=== PATIENT | male | born 1965 | race Caucasian/White ===

== ENCOUNTER 2020-09-18 14:40 | Inpatient (IN) | payer MEDICAID ==
[~2020-09-18] VITALS: Ht 172.7 cm; Wt 108.4 kg
[2020-09-18] MEDS ORDERED: MORPHINE SULFATE INJ 2 MG/ML DISP.SYRIN IV ONE (15:30)
[2020-09-18] MEDS ORDERED: IV NS 0.9% 1,000 ML BAG IV ONE (15:30)
[2020-09-18] MEDS ORDERED: MORPHINE SULFATE INJ 4 MG/ML DISP.SYRIN ONE (15:42)
[2020-09-18 15:45] LABS: BASOPHILS % (AUTO) 0.3 % (0.0-2.0); EOSINOPHILS % (AUTO) 0.9 % (0.0-6.0); HEMATOCRIT 33 % (39-51); HEMOGLOBIN 10.2 g/dL (13.5-17.5); LYMPHOCYTES # (AUTO) 0.6 K/uL (0.8-4.8); LYMPHOCYTES % (AUTO) 9.5 % (20.0-44.0); MEAN CORPUSCULAR HGB CONC 31 g/dl (31.0-36.0); MEAN CORPUSCULAR VOLUME 66 fL (80-96); MONOCYTES # (AUTO) 0.4 K/uL (0.1-1.30); MONOCYTES % (AUTO) 6.7 % (2.0-12.0); NEUTROPHILS # (AUTO) 5.3 K/uL (1.8-8.9); NEUTROPHILS % (AUTO) 82.6 % (43.0-81.0); PLATELET COUNT (AUTO) 290 K/uL (150-450); RED BLOOD CELL COUNT(AUTO) 5.05 MIL/uL (4.5-6.0); WHITE BLOOD COUNT (AUTO) 6.5 K/uL (4.3-11.0)
--- NOTE | 2020-09-18 15:51 | NUR ---
THE PATIENT REFUSES TO GIVE URINE AT THIS TIME DESPITE EXPLAINING RISKS AND BENEFITS.
[2020-09-18 15:59] LABS: ALBUMIN 3.3 g/dL (3.4-5.0); BILIRUBIN,DIRECT 0.1 mg/dL (0.0-0.2); BILIRUBIN,TOTAL 0.5 mg/dL (0.2-1.0); CREATININE 1.1 mg/dL (0.6-1.3); POTASSIUM 4.2 mmol/L (3.5-5.1); TOTAL PROTEIN, SERUM 7.4 g/dL (6.4-8.2)
[2020-09-18 16:07] LABS: CALCIUM, SERUM 8.8 mg/dL (8.5-10.1)
--- NOTE | 2020-09-18 16:52 | NUR ---
CALLED SURGERY ISREAL SPARKS.
--- NOTE | 2020-09-18 17:04 | NUR ---
MOVE SHEET SUBMITTED AND CALLED FOR MS BED.
--- NOTE | 2020-09-18 17:16 | NUR ---
COVID SWABS DONE AND SENT TO THE LAB
--- NOTE | 2020-09-18 17:36 | NUR ---
CALLED DR. BACH AGAIN [phone] LEFT MSG.
--- NOTE | 2020-09-18 18:13 | NUR ---
DR BACH SPEAKING WITH DR GUTIERREZ
--- NOTE | 2020-09-18 18:28 | NUR ---
ROOM 103
--- NOTE | 2020-09-18 18:39 | NUR ---
REPORT GIVEN TO NURSE EDUARDO
--- NOTE | 2020-09-18 19:01 | NUR ---
EPIC CALLED INSPECTOR BALANCE TRUING PAGED
--- NOTE | 2020-09-18 19:40 | NUR ---
RN NOTES RECEIVED PT FROM ER VIA GURNEY ACCOMPANIED BY 1 ER STAFF AND TRANSFERRED TO BED VIA 2 PERSON ASSIST. PT IS A/OX4 ON ROOM AIR WITH RESPIRATIONS EVEN AND UNLABORED. COMPREHENSIVE PHYSICAL ASSESSMENT AND PATIENT CARE DONE. CALL LIGHT WITHIN REACH, SAFETY MEASURES AND ISOLATION PRECAUTION IN PLACE, WILL CONTINUE MONITOR AND ASSESS THROUGHOUT THE SHIFT. WILL CARRY OUT MD ORDERS ACCORDINGLY. MARKET ANALYST MADE AWARE.
[2020-09-18] MEDS: MORPHINE SULFATE INJ 2 MG/ML DISP.SYRIN IV PRN (19:47)
[2020-09-18 20:00] VITALS: BP 118/73
[2020-09-18] MEDS ORDERED: ACETAMINOPHEN 650 MG/SUPP.RECT RC PRN (20:00)
[2020-09-18] MEDS: IV D5/0.45 NACL 1,000 ML IV PRN (20:35)
[2020-09-18] MEDS: ONDANSETRON HCL/PF 4 MG/2 ML VIAL IVP PRN (21:30)
--- NOTE | 2020-09-18 23:00 | NUR ---
RN NOTES NO CHANGE IN PATIENT CONDITION AT THIS TIME PATIENT VITALS STABLE, NO SIGNS OF ACUTE RESPIRATORY DISTRESS. INSPECTOR PACKAGER MADE AWARE. WILL CONTINUE TO MONITOR AND REASSESS FOR ANY CHANGES THROUGHOUT THE SHIFT.
--- NOTE | 2020-09-19 | NUR ---
RN NOTES PT'S FAMILY/GIRL FRIEND DROPPED BY SOME PERSONAL STUFF OF PT, ALSO SENT PT'S BELONGINGS AT HOME RECEIVED BY MS GIULIA STORMMIRLANDENONA (GIRLFRIEND) BELONGINGS SENT HOME FOLLOWS 2 SHIRTS, 1 PAIR OF SHOES, 1 SHORTS, SOCKS, 1 WATCH , 1 RING, WALLET WITH BOGGS $20(X14) $1(X5) AND $10(1X) AND KEYS. ALL BELONGINGS ACCOUNTED AND SENT HOME; SIGNED BY THE GF. NET REPAIRER MADE AWARE.
[2020-09-19 04:00] VITALS: BP 137/79
[2020-09-19 06:52] LABS: BASOPHILS % (AUTO) 0.5 % (0.0-2.0); EOSINOPHILS % (AUTO) 3.4 % (0.0-6.0); HEMATOCRIT 31 % (39-51); HEMOGLOBIN 9.7 g/dL (13.5-17.5); LYMPHOCYTES # (AUTO) 1.2 K/uL (0.8-4.8); LYMPHOCYTES % (AUTO) 25.6 % (20.0-44.0); MEAN CORPUSCULAR HGB CONC 31 g/dl (31.0-36.0); MEAN CORPUSCULAR VOLUME 65 fL (80-96); MONOCYTES # (AUTO) 0.4 K/uL (0.1-1.30); MONOCYTES % (AUTO) 9.5 % (2.0-12.0); NEUTROPHILS # (AUTO) 2.9 K/uL (1.8-8.9); PLATELET COUNT (AUTO) 258 K/uL (150-450); RED BLOOD CELL COUNT(AUTO) 4.81 MIL/uL (4.5-6.0); WHITE BLOOD COUNT (AUTO) 4.7 K/uL (4.3-11.0)
--- NOTE | 2020-09-19 06:52 | NUR ---
RN CLOSING NOTE: PATIENT REMAINS IN ROOM IN NO SIGNS OF RESPIRATORY DISTRESS, PATIENT STILL ON ROOM AIR ;TOLERATING WELL SATURATING @ >95% SP02. SAFETY MEASURES IMPLEMENTED, BED IN LOWEST POSITION, LOCKED, SIDE RAILS UP, CALL LIGHT WITHIN REACH. ALL NEEDS AND ORDERS ADDRESSED DURING THE SHIFT. IV ACCESS MAINTAINED INTACT, SECURED AND FLUSHING WELL. ALL DUE MEDS GIVEN ORDERED & SCHEDULED ; PATIENT TOLERATED WELL. PATIENT KEPT CLEAN AND COMFORTABLE WITHIN THE SHIFT. PATIENT ENDORSED TO INCOMING SHIFT RN WITH STABLE VITAL SIGN AND FOR CONTINUITY OF CARE.
--- NOTE | 2020-09-19 07:11 | NUR ---
RN OPENING NOTE RECEIVED PATIENT RESTING IN BED. PATIENT IS A/O X4. PATIENT IS BREATHING EVENLY NONLABORED ON ROOM AIR. NO SIGNS OF DISTRESS NOTED. PATIENT HAS IV ACCESS R HAND # 20 GAUGE RUNNING D5 1/2 NS @ 75 ML/HR. PATIENT IS NPO POST MIDNIGHT FOR PROCEDURE. SAFETY MEASURES ARE IN PLACE. BED LOW LOCKED CALL LIGHT WITHIN REACH. WILL CONTINUE TO MONITOR
[2020-09-19 07:12] LABS: CALCIUM, SERUM 8.3 mg/dL (8.5-10.1); CREATININE 0.9 mg/dL (0.6-1.3); POTASSIUM 3.8 mmol/L (3.5-5.1)
[2020-09-19 08:00] VITALS: BP 136/86
[2020-09-19] MEDS: PANTOPRAZOLE 40 MG VIAL IV SCH (08:06)
[2020-09-19] MEDS: MORPHINE SULFATE INJ 2 MG/ML DISP.SYRIN IV PRN ×3 (08:06→22:11)
[2020-09-19] MEDS: NICOTINE PATCH (7MG) 7 MG PATCH.TD24 TD SCH (08:06)
--- NOTE | 2020-09-19 08:15 | NUR ---
RN NOTE PATIENT COMPLAINED OF SEVERE PAIN /, ASKED FOR PRN PAIN MEDICATIONS. VITALS STABLE. MEDICATION GIVEN ORDERED. MD AT BEDSIDE, STATED OKAY FOR MIDLINE DUE TO MULTIPLE IV STICKS AND UNABLE TO OBTAIN IV ACCESS. WILL CONTINUE TO MONITOR
[2020-09-19] MEDS ORDERED: OMEP20CA15 PO (08:27)
[2020-09-19] MEDS: IV D5/0.45 NACL 1,000 ML IV PRN (09:41)
--- NOTE | 2020-09-19 10:00 | NUR ---
RN NOTE PATIENT HAS LEFT UPPER ARM MIDLINE 18 GAUGE PLACED, PATENT INTACT. PATIENT TOLERATED PROCEDURE WELL
[2020-09-19] MEDS: SOD FERRIC GLUC 125 MG in IV NS 0.9% 100 ML IV SCH (13:16)
[2020-09-19 16:21] VITALS: BP 128/70
--- NOTE | 2020-09-19 17:00 | NUR ---
RN NOTE PATIENT COMPLAINED OF SEVERE PAIN 9/10, ASKED FOR PRN PAIN MEDICATIONS. VITALS STABLE. MEDICATION GIVEN ORDERED
--- NOTE | 2020-09-19 18:19 | NUR ---
RN CLOSING NOTE PATIENT RESTING IN BED. PATIENT IS A/O X4. PATIENT IS BREATHING EVENLY NONLABORED ON ROOM AIR. NO SIGNS OF DISTRESS NOTED. PATIENT DOES NOT COMPLAIN OF PAIN AT THIS TIME. PATIENT HAS IV ACCESS R HAND # 20 GAUGE RUNNING D5 1/2 NS @ 75 ML/HR & LEFT UPPER ARM MIDLINE, PATENT INTACT. ALL MEDICATION GIVEN ORDERED. SAFETY MEASURES ARE IN PLACE. BED LOW LOCKED CALL LIGHT WITHIN REACH. WILL ENDORSE TO ONCOMING SHIFT
--- NOTE | 2020-09-19 20:00 | NUR ---
RN OPENING NOTE PATIENT RESTING IN BED. PATIENT IS A/O X4. PATIENT IS BREATHING EVEN AND UNLABORED, TOLERATING ROOM AIR. NO COMPLAINS OF PAIN AT THIS TIME. PATIENT HAS IV ACCESS R HAND G 20 RUNNING D5 1/2 NS @ 75 ML/HR AND LEFT UPPER ARM MIDLINE, PATENT AND INTACT. NPO STATUS ENDORSED. PATIENT AMBULATORY TO BATHROOM. SAFETY MEASURES ARE IN PLACE. BED LOW LOCKED CALL LIGHT WITHIN REACH. WILL CONTINUE TO MONITOR.
[2020-09-20] VITALS: BP 158/83
[2020-09-20] MEDS: IV D5/0.45 NACL 1,000 ML IV PRN ×2 (01:05→15:19)
[2020-09-20] MEDS: MORPHINE SULFATE INJ 2 MG/ML DISP.SYRIN IV PRN ×4 (04:14→22:38)
[2020-09-20] MEDS: ONDANSETRON HCL/PF 4 MG/2 ML VIAL IVP PRN (04:24)
--- NOTE | 2020-09-20 07:25 | NUR ---
RN CLOSING NOTE PATIENT IN BED, SLEEPING. EASILY AROUSED. PATIENT NOT IN ANY APPARENT DISTRESS. PATIENT'S BREATHING EVEN AND UNLABORED, TOLERATING ROOM AIR. PATIENT ABLE TO MAKE NEEDS KNOWN, A/O X 4. NO COMPLAINS OF N/V AT THIS TIME. IV FLUIDS INFUSING WELL ON R HAND 20 G. ROSHNI MIDLINE REMAINS PATENT AND INTACT. SAFETY MEASURES MAINTAINED. ALL NEEDS MET AND ATTENDED, PAIN MANAGED WITH MORPHINE 4 MG LAST GIVEN 0414, AND NAUSEA MANAGED WITH ZOFRAN 0424. ALL ORDERS CARRIED OUT. ENDORSED TO DAY SHIFT NURSE FOR LONI.
--- NOTE | 2020-09-20 07:30 | NUR ---
RN NOTES PATIENT SLEEPING AT THIS TIME BUT ABLE TO BE AWAKENED. A/O X4, ABLE TO MAKE NEEDS KNOWN. BREATHING EVEN AND UNLABORED, ON AMBIENT AIR, NO RESPIRATORY DISTRESS. MIDLINE INTACT AND PATENT. IVF INFUSING WELL. PER PREVIOUS SHIFT RN, PATIENT REFUSED BLOOD DRAW. SAFETY MEASURES IN PLACE. WILL CONTINUE TO MONITOR.
[2020-09-20 08:00] VITALS: BP 109/68
[2020-09-20] MEDS: PANTOPRAZOLE 40 MG VIAL IV SCH (08:14)
[2020-09-20] MEDS: NICOTINE PATCH (7MG) 7 MG PATCH.TD24 TD SCH (08:14)
--- NOTE | 2020-09-20 08:20 | NUR ---
RN NOTES PATIENT WAS SEEN BY DR. MC TODAY.
[2020-09-20 09:52] VITALS: BP 109/68
--- NOTE | 2020-09-20 13:00 | NUR ---
RN NOTES INFORMED DR. BACH ABOUT SURGICAL CONSULT, AWAITING FOR RESPONSE FROM .
--- NOTE | 2020-09-20 15:12 | NUR ---
RN NOTES ASKED PHARMACY FOR FERLECIT DUE AT 1400; SPOKE W/ OMAR AND WILL HAVE IV MEDICATION READY.
--- NOTE | 2020-09-20 15:17 | NUR ---
RN NOTES SPOKE W/ VIVIENNE ([phone]), PATIENT'S GIRLFRIEND, AND INFORMED ABOUT PLAN FOR PATIENT; SPOKE W/ PATIENT USING UNIT PHONE.
[2020-09-20] MEDS: SOD FERRIC GLUC 125 MG in IV NS 0.9% 100 ML IV SCH (15:19)
[2020-09-20 16:00] VITALS: BP 119/82
--- NOTE | 2020-09-20 19:45 | NUR ---
RN OPENING NOTE PATIENT RESTING IN BED. PATIENT IS A/O X4. PATIENT IS BREATHING EVEN AND UNLABORED, TOLERATING ROOM AIR. NO COMPLAINS OF PAIN AT THIS TIME. PATIENT HAS IV ACCESS R HAND 20 G WHICH IS NOT PATENT AND TENDER, WILL BE REMOVED. PT. ALSO HAS A (L) UA MIDLINE RUNNING D5 1/2 NS @ 75 ML/HR. NPO STATUS PENDING SURGICAL CONSULT. PATIENT AMBULATORY TO BATHROOM WITH STEADY GAIT. SAFETY MEASURES ARE IN PLACE. BED LOW, LOCKED, CALL LIGHT WITHIN REACH, SIDE RAILS UP X2. NO ACUTE DISTRESS NOTED AT THIS TIME. .
--- NOTE | 2020-09-20 20:15 | NUR ---
RN NOTE PT (R) HAND IV NON-PATENT AND TENDER. REMOVED AND IV CATHETER TIP INTACT. THERE IS NO EXTRAVASATION, INFILTRATION OR ERYTHEMA EVIDENT. COVERED WITH CLEAN GAUZE AND TAPE.
--- NOTE | 2020-09-20 23:10 | NUR ---
RN NOTE PT COMPLAINED OF PAUN 8/10 LOCALIZED IN ANTERIOR ABDOMEN. STATES IT IS ACUTE SHARP PAIN RADIATING THROUGHOUT ENTIRE ABDOMEN. MORPHINE 4MG PRN GIVEN PER eMAR at 2238. PAIN RE-ASSESSMENT COMPLETED AT 2308. PT VERBALIZES RELIEF OF PAIN WITH A PAIN LEVEL OF 1/10. PT. IS EASILY AROUSABLE AND RESTING COMFORTABLY. NO ACUTE DISTRESS NOTED.
[2020-09-21] VITALS: BP 139/79
[2020-09-21 04:00] VITALS: BP 140/60
[2020-09-21] MEDS: IV D5/0.45 NACL 1,000 ML IV PRN ×2 (05:00→21:19)
--- NOTE | 2020-09-21 06:42 | NUR ---
RN CLOSING NOTE PATIENT IN BED, SLEEPING. A/O X 4. EASILY AROUSED. PATIENT BREATHING EVEN AND UNLABORED SATURATIONS ABOVE 98% ON ROOM AIR. PATIENT ABLE TO MAKE NEEDS KNOWN. NO COMPLAINS OF N/V AT THIS TIME. IV FLUIDS INFUSING WELL ON (L) UA MIDLINE WHICH REMAINS PATENT CLEAN DRY AND INTACT. SAFETY MEASURES MAINTAINED. ALL NEEDS MET AND ATTENDED, PAIN MANAGED WITH MORPHINE IVP PRN 4 MG LAST GIVEN AT 2238. NO ACUTE DISTRESS NOTED AT THIS TIME. WILL ENDORSE CONTINUITY OF CARE TO MORNING SHIFT RN. .
[2020-09-21 07:09] LABS: BASOPHILS # (AUTO) 0.1 K/uL (0.0-0.2); BASOPHILS % (AUTO) 1.1 % (0.0-2.0); EOSINOPHILS % (AUTO) 3.1 % (0.0-6.0); HEMATOCRIT 33 % (39-51); HEMOGLOBIN 10.2 g/dL (13.5-17.5); LYMPHOCYTES # (AUTO) 1.2 K/uL (0.8-4.8); MEAN CORPUSCULAR HGB CONC 31 g/dl (31.0-36.0); MEAN CORPUSCULAR VOLUME 66 fL (80-96); MONOCYTES # (AUTO) 0.4 K/uL (0.1-1.30); MONOCYTES % (AUTO) 6.9 % (2.0-12.0); NEUTROPHILS # (AUTO) 3.4 K/uL (1.8-8.9); NEUTROPHILS % (AUTO) 65.9 % (43.0-81.0); PLATELET COUNT (AUTO) 253 K/uL (150-450); RED BLOOD CELL COUNT(AUTO) 5.03 MIL/uL (4.5-6.0); WHITE BLOOD COUNT (AUTO) 5.2 K/uL (4.3-11.0)
[2020-09-21] MEDS: MORPHINE SULFATE INJ 2 MG/ML DISP.SYRIN IV PRN ×3 (07:25→21:58)
[2020-09-21] MEDS: ONDANSETRON HCL/PF 4 MG/2 ML VIAL IVP PRN (07:39)
[2020-09-21 07:40] LABS: CALCIUM, SERUM 8.4 mg/dL (8.5-10.1); CREATININE 1.2 mg/dL (0.6-1.3); POTASSIUM 3.9 mmol/L (3.5-5.1)
[2020-09-21 08:00] VITALS: BP 119/81
[2020-09-21] MEDS: NICOTINE PATCH (7MG) 7 MG PATCH.TD24 TD SCH (08:16)
[2020-09-21] MEDS: PANTOPRAZOLE 40 MG VIAL IV SCH (08:16)
--- NOTE | 2020-09-21 08:20 | NUR ---
RN Note: Pt received alert awake oriented X4. On RA, no breathing distress noted. C/O abdominal pain, morphine IV given as ordered. Safety measures observed. Encourage pt to use call light for assistance. Call light within reach. Continue to monitor. Waiting for Surgery consult.
[2020-09-21] MEDS: SOD FERRIC GLUC 125 MG in IV NS 0.9% 100 ML IV SCH (14:16)
[2020-09-21 16:00] VITALS: BP 138/73
--- NOTE | 2020-09-21 16:00 | NUR ---
RN Note; Pt seen by Dr. Linder at bedside. Received new orders to start clear liquids & NPO post MN. Verbal order to get consent for possible surgery tomorrow. Consent signed by pt & placed in the chart. Pt agree with plan. Continue to monitor.
--- NOTE | 2020-09-21 19:24 | NUR ---
RN Note: No any significant changes noted during shift. Report given to shift mechanic for continuity of care.
[2020-09-21 21:15] VITALS: BP 156/78
--- NOTE | 2020-09-21 21:15 | NUR ---
MS RN NOTES RECEIVED PATIENT FROM [facility] VIA WHEELCHAIR ACCOMPANIED BY URSULA RN GERALD. PATIENT IS ALERT AND ORIENTED X 4, ABLE TO AMBULATE WHEN TRANSFERRED TO BED. ON ROOM AIR, IN NO ACUTE DISTRESS NOTED. IV ACCESS ON LEFT UPPER ARM, PATENT AND FLUSHES WELL. PATIENT STARTED ON D5 1/2 NS X 75CC/HR. VS TAKEN ADN RECORDED FOLLOWS: TEMP 98.1, WI 55, RR 20, BP 156/78, O2 SAT 97%. ORIENTED PATIENT TO UNIT. INSTRUCTED ON THE USE OF CALL LIGHT WHEN ASSISTANCE IS NEEDED. INSTRUCTED ON NPO POST MIDNIGHT. PATIENT VERBALIZED UNDERSTANDING OF INSTRUCTIONS GIVEN. FOR SCHEDULED SURGERY CASIE (09/22/20), CONSENTS SIGNED PER REPORT, SAFETY PRECAUTIONS OBSERVED: BED ON LOWEST LOCKED POSITION, KEPT SIDE RAILS UP X 2. CALL LIGHT AND BEDSIDE TABLE WITHIN EASY REACH. WILL CONTINUE TO MONITOR PATIENT'S CONDITION.
--- NOTE | 2020-09-21 21:58 | NUR ---
PAIN MANAGEMENT PATIENT C/O LEFT LOWER ABDOMINAL PAIN WITH PAIN SCALE OF 8/10, DUE PRN MORPHINE GIVEN ORDERED. WILL CONTINUE TO MONITOR PATIENT'S PAIN STATUS.
--- NOTE | 2020-09-21 22:50 | NUR ---
RN notes Received patient in bed watching TV with no distress noted. Breathing even and unlabored. On room air tolerating well. Alert and oriented x4. Able to communicate needs verbally. Ambulatory and cooperative. No complaint of pain or discomfort. Kept clean and dry. [facility] via wheelchair safely and comfortably. Endorsed to Nataliya CUBA.
[2020-09-22 00:17] LABS: BILIRUBIN,URINE NEGATIVE (NEGATIVE); COLOR,URINE YELLOW (YELLOW); LEUKOCYTE ESTERASE ,URINE MODERATE (NEGATIVE); NITRITE, URINE NEGATIVE (NEGATIVE); PH,URINE 6.5 (5.0-8.0); PROTEIN,URINE NEGATIVE (NEGATIVE); UGLUCOSE NEGATIVE (NEGATIVE)
[2020-09-22 01:26] LABS: WBC,URINE 21-50 /HPF (0-3)
[2020-09-22 01:27] LABS: BACTERIA,URINE Few /HPF (None Seen); MUCUS,URINE Few /LPF (None Seen); SQUAMOUS EPITHELIAL CELL,UR Few /HPF (None Seen)
[2020-09-22] MEDS: MORPHINE SULFATE INJ 2 MG/ML DISP.SYRIN IV PRN ×4 (03:45→22:21)
--- NOTE | 2020-09-22 03:45 | NUR ---
PAIN MANAGEMENT PATIENT HAS C/O LEFT LOWER ABDOMINAL PAIN WITH PAIN SCALE OF 8/10, DUE PRN MORPHINE GIVEN ORDERED. WILL CONTINUE TO MONITOR PATIENT'S PAIN STATUS.
[2020-09-22 04:11] VITALS: BP 100/59
--- NOTE | 2020-09-22 05:19 | NUR ---
RN NOTES REFUSED BLOOD DRAW FOR AM LABS. RISK AND BENEFITS EXPLAINED 3X, BUT PATIENT STILL REFUSED.
--- NOTE | 2020-09-22 06:43 | NUR ---
MS RN CLOSING NOTES APTIENT IN BED, AWAKE, ALERT AND ORIENTED X 4, ON ROOM AIR TOLERATING WELL, IN NO ACUTE DISTRESS NOTED. IV ACCESS ON LEFT UPPER ARM, ONGOING D5 1/2 NS X 75CC/HR, INFUSING WELL, NO REDNESS, NO S/SX OF INFILTRATION NOTED. REINFORCED NPO. PRE OP CHECKLIST PARTIALLY DONE. SAFETY PRECAUTIONS OBSERVED AND MAINTAINED DURING THE SHIFT: BED ON LOWEST LOCKED POSITION, KEPT SIDE RAILS UP X 2. CALL LIGHT AND BEDSIDE TABLE WITHIN EASY REACH. NO COMPLAINTS OF PAIN AT THIS TIME. NEEDS ATTENDED AND MET. WILL ENDORSE TO MORNING SHIFT NURSE FOR LONI.
--- NOTE | 2020-09-22 07:10 | NUR ---
MS RN OPENING NOTE RECEIVED PATIENT RESTING IN BED. PATIENT IS A/O X4. PATIENT IS BREATHING EVEN AND UNLABORED, TOLERATING ROOM AIR. NO COMPLAINS OF PAIN AT THIS TIME. PATIENT HAS IV ACCESS R HAND G 20 RUNNING D5 1/2 NS @ 75 ML/HR AND LEFT UPPER ARM MIDLINE, PATENT AND INTACT. NPO STATUS MAINTAINED, PATIENT WILL HAVE SURGICAL PROCEDURE LATER TODAY. PATIENT IS AMBULATORY. SAFETY MEASURES ARE IN PLACE. BED LOW LOCKED CALL LIGHT WITHIN REACH. WILL CONTINUE TO MONITOR.
--- NOTE | 2020-09-22 08:00 | NUR ---
RN NOTE PATIENT C/O LEFT LOWER ABDOMINAL PAIN WITH PAIN SCALE OF 10/10, DUE PRN MORPHINE GIVEN ORDERED. WILL CONTINUE TO MONITOR PATIENT'S PAIN STATUS.
[2020-09-22] MEDS: PANTOPRAZOLE 40 MG VIAL IV SCH (08:25)
[2020-09-22] MEDS: NICOTINE PATCH (7MG) 7 MG PATCH.TD24 TD SCH (08:25)
[2020-09-22 08:54] VITALS: BP 147/65
--- NOTE | 2020-09-22 11:26 | NUR ---
RN NOTE PATIENT LEFT IN STABLE CONDITION FOR SURGERY, NO SIGNS OF DISTRESS NOTED
[2020-09-22] MEDS ORDERED: FENTANYL PF 100MCG/2ML AMPUL ONE (11:51)
[2020-09-22] MEDS ORDERED: ROCURONIUM BROMIDE 50 MG/5 ML ONE (11:52)
[2020-09-22] MEDS ORDERED: BUPIVACAINE MPF 0.5% W/EPI INJ 30 ML VIAL ONE (11:57)
[2020-09-22] MEDS ORDERED: LIDOCAINE HCL/MPF 1% 30 ML VIAL IJ ONE (11:57)
[2020-09-22] MEDS ORDERED: BACITRACIN ZINC OINT (15 GM) 15 GM TUBE TP ONE (13:42)
[2020-09-22] MEDS ORDERED: HYDROMORPHONE 1 MG/1 ML DISP.SYRIN ONE ×2 (14:01→14:18)
--- NOTE | 2020-09-22 14:57 | NUR ---
RN NOTE PATIENT RETURN BACK FROM SURGERY. VITALS BP 145/78, HR 89, RR 18, SPO 100 ON ROOM AIR. VITALS SET FOR Q15 MIN. PATIENT COMPLAINS OF SEVERE PAIN, PATIENT WAS GIVEN DILAUDID 30 MIN AGO IN RECOVERY. WILL REASSESS. GAVE NEW ORDER FOR CLEAR LIQUID. WILL CONTINUE TO MONITOR
--- NOTE | 2020-09-22 15:00 | NUR ---
RN NOTE ADMINISTERED FERRLECIT, DUE AT 1400, PATIENT WAS IN SURGICAL PROCEDURE. OKAY TO GIVE AFTER PROCEDURE. WILL CONTINUE TO MONITOR
[2020-09-22] MEDS: GABAPENTIN 300 MG CAPSULE PO SCH ×2 (15:47→22:15)
[2020-09-22] MEDS: ACETAMINOPHEN 325 MG TABLET PO SCH ×2 (15:47→22:15)
[2020-09-22] MEDS: IBUPROFEN 400 MG TABLET PO SCH ×2 (15:49→22:15)
[2020-09-22] MEDS: IV LR 1000 ML 1,000 ML IV PRN (15:49)
[2020-09-22] MEDS: SOD FERRIC GLUC 125 MG in IV NS 0.9% 100 ML IV SCH (15:49)
[2020-09-22 16:03] VITALS: BP 145/83
--- NOTE | 2020-09-22 17:50 | NUR ---
RN NOTE PATIENT C/O LEFT LOWER ABDOMINAL PAIN WITH PAIN SCALE OF 10/10, DUE PRN MORPHINE GIVEN ORDERED. WILL CONTINUE TO MONITOR PATIENT'S PAIN STATUS.
--- NOTE | 2020-09-22 18:22 | NUR ---
MS RN CLOSING NOTE RECEIVED PATIENT RESTING IN BED. PATIENT IS A/O X4. PATIENT IS BREATHING EVEN AND UNLABORED, TOLERATING ROOM AIR. NO COMPLAINS OF PAIN AT THIS TIME. PATIENT HAS IV ACCESS R HAND G 20 RUNNING LR @ 100 ML/HR AND LEFT UPPER ARM MIDLINE, PATENT AND INTACT. PATIENT IS POSTOP SURGICAL PROCEDURE WITH SURGICAL INCISION ON ABDOMEN, DRESSING C/D/I. ALL MEDICATION GIVEN ORDERED. PATIENT WAS ADVANCED TO CLEAR LIQUID WITH ORDER TO ADVANCE TO REGULAR TOMORROW.. SAFETY MEASURES ARE IN PLACE. BED LOW LOCKED CALL LIGHT WITHIN REACH. WILL ENDORSE TO ONCOMING SHIFT
[2020-09-22 20:00] VITALS: BP 165/96
--- NOTE | 2020-09-22 20:00 | NUR ---
MS RN OPENING NOTE Patient is resting in bed but easy to wake, kis A&Ox4, but stated he just wants to be left alone right now to rest and that he hasn't slept well and is tired from procedure earlier. Refused vital signs, will try again later.
[2020-09-22 23:12] VITALS: BP 165/96
[2020-09-22] MEDS: HYDROMORPHONE 1 MG/1 ML DISP.SYRIN IV PRN (23:52)
--- NOTE | 2020-09-22 23:52 | NUR ---
morphine 4mg not working for patient. pain progressed to 10/10 and small amounts of vomiting fluids. New order to change to dilaudid 0.5mg PRN q4h. okay to give first dose NOW
[2020-09-23] MEDS ORDERED: METOCLOPRAMIDE HCL 10 MG/2 ML VIAL IV ONE (00:30)
[2020-09-23] MEDS: IV LR 1000 ML 1,000 ML IV PRN (03:45)
[2020-09-23] MEDS: HYDROMORPHONE 1 MG/1 ML DISP.SYRIN IV PRN ×4 (04:18→17:30)
--- NOTE | 2020-09-23 05:30 | NUR ---
Patient had x2 angry outbursts with yelling and cussing at staff. Refused vital signs first time around and angry about pain medication. Patient ended up apologizing for actions. After abdominal pain relieved by PRN dilaudid and reglan then patient was able to sleep well throughout the night though easy to wake. Tolerating IVF well. No signs of distress.
[2020-09-23] MEDS: GABAPENTIN 300 MG CAPSULE PO SCH ×2 (06:33→14:59)
[2020-09-23] MEDS: ACETAMINOPHEN 325 MG TABLET PO SCH ×2 (06:33→15:00)
[2020-09-23] MEDS: IBUPROFEN 400 MG TABLET PO SCH ×2 (06:33→14:59)
--- NOTE | 2020-09-23 06:34 | NUR ---
Patient refused 0700 medications d/t effect on stomach from last nights dose made stomach pain more severe in addition to vomiting. Patient also refused blood/lab draw this AM after unable to get any blood return from midline.
[2020-09-23] MEDS: ONDANSETRON HCL/PF 4 MG/2 ML VIAL IVP PRN (06:50)
--- NOTE | 2020-09-23 07:02 | NUR ---
MS RN OPENING NOTES RECEIVE PT AWAKE IN BED AT THIS TIME. AOX4. NO SOB NOTED, NO S/O OF ANY ACUTE DISTRESS NOTED, NO C/O PAIN AT THIS TIME. NOTED WITH CLEAN DRY ABDOMINAL INCISION WITH CLEAN DRESSING. ROSHNI MIDLINE NOTED, INTACT, PATENT AND FLUSHING WELL. ASPIRATION AND SAFETY PRECAUTIONS IN PLACE AND MAINTAINED AT ALL TIMES. BED IN LOWEST LOCKED POSITION, HOB ELEVATED, SIDE RAILS UP X2, CALL LIGHT AND TABLE WITHIN REACH. WILL CONTINUE TO MONITOR
[2020-09-23 08:15] VITALS: BP 146/82
[2020-09-23] MEDS: PANTOPRAZOLE 40 MG VIAL IV SCH (08:54)
[2020-09-23] MEDS: METOCLOPRAMIDE HCL 10 MG/2 ML VIAL IV SCH ×3 (08:54→18:17)
[2020-09-23] MEDS: NICOTINE PATCH (7MG) 7 MG PATCH.TD24 TD SCH (08:55)
[2020-09-23 08:57] VITALS: BP 152/84
[2020-09-23] MEDS ORDERED: AMLODIPINE BESYLATE 5 MG TABLET PO SCH (09:00)
--- NOTE | 2020-09-23 09:00 | NUR ---
PT C/O ACHING LOWER ABDOMINAL PAIN OF 10/10. PT NOTED IRRITABLE, RESTLESS, MOANING AND GRASPING SITE. VS BP 146/82, HR 99, RR 20, T 98.4, SPO2 100%. PER PT REQUEST DILAUDID 0.5MG IV Q4H WAS ADMINISTERED PER ORDER FOR PAIN. WILL CONTINUE TO MONITOR
[2020-09-23] MEDS ORDERED: HYDR-3972 PO (10:36)
--- NOTE | 2020-09-23 13:35 | NUR ---
PT C/O ACHING LOWER ABDOMINAL PAIN OF 10/10. PT NOTED IRRITABLE, MOANING AND GRASPING SITE. VS BP 134/70, HR 78, RR 20, T 97.6, SPO2 100%. PER PT REQUEST DILAUDID 0.5MG IV Q4H WAS ADMINISTERED PER ORDER FOR PAIN. WILL CONTINUE TO MONITOR
[2020-09-23] MEDS: SOD FERRIC GLUC 125 MG in IV NS 0.9% 100 ML IV SCH (14:43)
--- NOTE | 2020-09-23 16:34 | NUR ---
"SS Consult: SS Consult completed for Homelessness & Hx. of Meth. The pt. is a 54 year old male. The pt. appears well-groomed and makes good eye contact. The pt.'s speech, mood, thought process are WNL. Pt. denies SI/HI and denies hallucinations. The pt. stated that he was last residing with his girlfriend, Gianna Spencer in her home but the girlfriend left to [place] yesterday and he no longer has a place to stay. CLIFFORD explored pt.'s support system. Pt. stated his family resides in [place]. SW used solution bsed interviewing and pt. stated that [facility] if no placement is available. CLIFFORD discussed with Danita KEITH who stated that pt. has no skilled needs at this time. CLIFFORD informed pt.and provided homeless resources and pt. expressed understanding and accepted resources. Pt. denies drug & ETOH use. Pt. states he receives food stamps. Pt refused to sign homeless waiver. CLIFFORD placed waiver in pt.'s chart. Substance Abuse resources provided included: [facility] Substance Abuse Self-Helpline ([facility]) ; [facility] [address] [facility]. [place] [id number] ; [facility] [address] [facility] [phone] ; [facility] Rehabilitation Program [address] [facility] [phone] ; [facility] [address] [facility] [phone] ; [facility] Treatment [facility] [address] [facility] [address] ; [facility] 909 On License [facility] [phone] ; [facility] Substance Abuse Helpline([facility])-[facility] ; [facility] ; [facility] [place]; [facility] [place]; [facility] [place]; [facility] Julio Cesar Turk; [facility] [place]; [facility]; [facility] [place]; [facility], [facility]. [facility]; Alcoholics Anonymous -SFV; Sr-Olbl-Pksekxr ; Marijuana Anonymous -SFV; Narcotics Anonymous www.na.org; Year-round shelters: [facility] [address] [place], [place] [phone] ; [facility] [address] [place] [address]; [place] [facility] Unybzgr8284 [facility] [address] Winter Shelters: Veronica Tennille [place] Provider: [facility] Address: [address] [facility] Center[facility] [place], [address] # of Beds: 47 Population Served: [facility] 6 | [facility] Provider: Home at Last Address: [address], [address] # of Beds: 66 Population Served: [facility] Eclector [place] Provider: First to Serve Address: [address] [facility], [address] # of Beds: 56 Population Served: [facility] Catalino SueChandler [place] Provider: SSG/[facility] Address: [address] [facility], [address] # of Beds: 49 Population Served: [facility] 8 | [facility] Provider: First to Serve Address: [address] [facility], [address] # of Beds: 37 Population Served: [facility] Hygiene: [facility]: [address] [address] Avery ; [facility] [address] [facility] ; [facility] 6901 [place] [facility] . Food Resources: [place] [facility] at [facility]- [address]. [place]; Meet Each Need with Dignity ([facility]) [address] [facility]. Story; [facility] Food Pantry 4376 [facility]; [facility] 2198 [facility]. Mental Health resources provided: [facility] [address] [place], [place] [phone] ; [facility] Mental Health [place] [address] [facility] [address], [place], [place] [phone] ; [facility] [address] [facility] [place] [address] ; [facility] [place], [place] [id number] Healthcare Clinics: [facility] [address] [facility], [address] [place]. [place] ; [facility] [address] [facility] [address] [place] [address]; [facility] Health [place] [address] [facility]. [place] [address] [phone] Counseling--Outpatient [facility] [address] [facility], [address] [place], [place] [address] (Specializes in in-depth psychotherapy for emotional distress: anxiety, depression, interpersonal conflicts, life transitions, childhood abuse) [facility] [address] [place] [address] (Assist with solving problem marital difficulties, separation & divorce, aging parents, & grief, chronic & terminal illness) [facility] [address] [place] [address] (Deal with loss & grief, anxiety, marital difficulties) Homebound/Mental Health Services [address] [facility], [address] [place] [address] (Provide in-home mental services to people who are incapable of leaving their homes) [facility] for Needs of the Elderly Senior Service/Resource Center [address] [place] [address] [facility] [address]. [facility] Medical CenteranirudhWAV[facility], [place] [address] PSYCHIATRIC OUTPATIENT SERVICES [facility] Partial Hospitalization and Intensive Outpatient Program (Managed Care and [place] Only)[address] Rad[address] [facility] [phone] [facility] Partial Hospitalization and Outpatient Bvyftfa[address] [place], [place] [phone] [facility] Partial Hospitalization and Outpatient Hpseknt[address]11 [address] Cesar [address] [place], [place] [phone] [facility] Mental Health Center Cej[address] [place], [place] [phone] [facility] Partial Hospitalization and Outpatient Pfrtwus74160 [facility] Julio Cesar TurkWAVERLY, [phone] "
--- NOTE | 2020-09-23 17:30 | NUR ---
PT C/O ACHING LOWER ABDOMINAL PAIN OF 10/10. PT NOTED GRASPING SITE. VS BP 140/87, HR 94, RR 20, T 98.0, SPO2 100%. PER PT REQUEST DILAUDID 0.5MG IV Q4H WAS ADMINISTERED PER ORDER FOR PAIN. WILL CONTINUE TO MONITOR
--- NOTE | 2020-09-23 18:30 | NUR ---
RETAIL SALES ASSISTANT NOTE PT DISCHARGE AT THIS TIME. PT MEDICALLY STABLE AND CLEARED FOR DISCHARGE BY DR STANLEY. ALL DISCHARGE INSTRUCTIONS PROVIDED TO PT. PT VERBALIZE UNDERSTANDING. ALL BELONGINGS ACCOUNTED FOR, SIGNED BY PATIENT AND WITH PATIENT. IV ACCESS REMOVED, PRESSURE APPLIED, SECURED WITH GAUZE AND TAPE, NO SIGN OF BLEEDING OR INFILTRATION NOTED. ID BAND REMOVED. PT LEFT UNIT IN STABLE CONDITION WITH HIS FRIEND, ACCOMPANIED BY NURSE TO LOBBY. MARSHALL, CHARGE NURSE AND DR STANLEY AWARE
[2020-09-24] MEDS ORDERED: PANTOPRAZOLE 40 MG TABLET.DR PO SCH (07:30)
== END 2020-09-23 18:40 | disposition home or self-care (01) | DRG 227 ==
LOC: ER 14:40 → MEDSG1 18:52 → MED 09-21 21:12
PROVIDERS: ADMIT Nurse Practitioner Family; ATTEND Internal Medicine
PROC: 05H633Z Insertion of Infusion Device into Left Subclavian Vein, Percutaneous Approach (ICD-10-PCS; 2020-09-19)
PROC: B547ZZA Ultrasonography of Left Subclavian Vein, Guidance (ICD-10-PCS; 2020-09-19)
PROC: 0WUF0JZ Supplement Abdominal Wall with Synthetic Substitute, Open Approach (ICD-10-PCS; principal; 2020-09-22)
PROC: 0DNU0ZZ Release Omentum, Open Approach (ICD-10-PCS; 2020-09-22)
DX: K43.0 Incisional hernia with obstruction, without gangrene (principal); E44.1 Mild protein-calorie malnutrition; E88.09 Other disorders of plasma-protein metabolism, not elsewhere classified; D50.9 Iron deficiency anemia, unspecified; F17.210 Nicotine dependence, cigarettes, uncomplicated; F15.90 Other stimulant use, unspecified, uncomplicated; K21.9 Gastro-esophageal reflux disease without esophagitis; Z90.49 Acquired absence of other specified parts of digestive tract; K66.0 Peritoneal adhesions (postprocedural) (postinfection); K59.00 Constipation, unspecified; Z80.3 Family history of malignant neoplasm of breast; Z68.36 Body mass index [BMI] 36.0-36.9, adult; R73.9 Hyperglycemia, unspecified; Z20.822 Contact with and (suspected) exposure to COVID-19; Z71.6 Tobacco abuse counseling
CPT/HCPCS: 36415; 71045-TC; 80048-TC; 80061-TC; 80076-TC; 81001; 83540-TC; 83605-TC; 83690-TC; 83735-TC; 85025-TC; 85610-TC; 85730-TC; 87081-TC; 87086-TC; 88302-TC; 93307-TC; C1874; C9113; C9803; G0378; J0690; J1100; J1170; J2270; J2405; J2704; J2765; J2916; J3010; J3490; J7030; J7120; U0003